=== PATIENT | male | born 1965 | race Asian ===

== ENCOUNTER 2021-03-09 00:46 | Outpatient (CLI) | payer OTHER | END 2021-03-09 00:47 | disposition critical access hospital (66) | LOC: EMS 00:46 | DX: R05.9 Cough, unspecified (principal) | CPT/HCPCS: A0425; A0427 ==

== ENCOUNTER 2021-03-09 01:08 | Emergency (ER) | payer OTHER ==
[2021-03-09] MEDS ORDERED: NITROGLYCERIN 2% PASTE TOP STA (01:28)
[2021-03-09] MEDS ORDERED: FUROSEMIDE 40 MG/4 ML VIAL IVP STA (01:28)
[2021-03-09 01:54] LABS: BASOPHILS # (AUTO) 0.1 10^3/uL (0.0-0.1); BASOPHILS % (AUTO) 0.7 %; EOSINOPHILS # (AUTO) 0.5 10^3/uL (0.0-0.7); EOSINOPHILS % (AUTO) 3.8 %; HCT - HEMATOCRIT 45.4 % (42.0-52.0); HGB - HEMOGLOBIN 14.8 g/dL (14.0-18.0); LYMPHOCYTES # (AUTO) 2.2 10^3/uL (1.5-3.5); MEAN CORPUSCULAR HEMOGLOBIN 28.7 pg (27.0-31.0); MEAN CORPUSCULAR HGB CONC 32.6 g/dL (32.0-36.0); MEAN CORPUSCULAR VOLUME 88.2 fL (80.0-94.0); MEAN PLATELET VOLUME 9.5 fL (7.4-11.4); MONOCYTES # (AUTO) 1.1 10^3/uL (0.0-1.0); MONOCYTES % (AUTO) 7.7 %; NEUTROPHILS # (AUTO) 10.4 10^3/uL (1.5-6.6); NEUTROPHILS % (AUTO) 72.2 %; PLT - PLATELET COUNT 292 10^3/uL (130-450); RED BLOOD COUNT 5.15 10^6/uL (4.70-6.10); RED CELL DISTRIBUTION WIDTH 14.6 % (12.0-15.0); WHITE BLOOD COUNT 14.4 x10^3/uL (4.8-10.8)
[2021-03-09 02:06] LABS: ALBUMIN 3.8 g/dL (3.2-5.5); ALBUMIN/GLOBULIN RATIO 1.1 (1.0-2.2); BILIRUBIN,TOTAL 0.4 mg/dL (0.2-1.0); CALCIUM 8.7 mg/dL (8.5-10.3); CREATININE 1.3 mg/dL (0.6-1.2); POTASSIUM 3.8 mmol/L (3.5-5.0); TOTAL PROTEIN 7.4 g/dL (6.7-8.2)
[2021-03-09 03:14] LABS: B. PARAPERTUSSIS- RESP PCR PAN NOT DETECTED; B. PERTUSSIS- RESP PCR PANEL NOT DETECTED; C. PNEUMONIAE- RESP PCR PANEL NOT DETECTED; CORONAVIRUS 229E-RESP PCR NOT DETECTED; CORONAVIRUS HKU1-RESP PCR NOT DETECTED; CORONAVIRUS NL63-RESP PCR NOT DETECTED; CORONAVIRUS OC43-RESP PCR NOT DETECTED; HUMAN METAPNEUMOVIRUS NOT DETECTED; INFLUENZA A- RESP PCR PANEL NOT DETECTED; INFLUENZA B - RESP PCR PANEL NOT DETECTED; M. PNEUMONIAE- RESP PCR PANEL NOT DETECTED; PARAINFLUENZA VIRUS 1 NOT DETECTED; PARAINFLUENZA VIRUS 2 NOT DETECTED; PARAINFLUENZA VIRUS 3 NOT DETECTED; PARAINFLUENZA VIRUS 4 NOT DETECTED; RHINOVIRUS/ENTEROVIRUS NOT DETECTED; RSV- RESP PCR PANEL NOT DETECTED; SARS-CoV-2 -RESP PCR PANEL NOT DETECTED
[2021-03-09] MEDS ORDERED: LORazepam 2 MG/ML VIAL IVP STA (03:22)
[2021-03-09] MEDS ORDERED: AZITHROMYCIN 250 MG TABLET PO STA (03:23)
--- NOTE | 2021-03-09 03:25 | ED Physician Documentation ---
PD HPI DYSPNEA - Stated complaint Stated Complaint: CP/ COUGH - Chief complaint Chief Complaint: Cardiac - History obtained from History obtained from: Patient, EMS - Additional information Additional information: Patient comes emergency department chief complaint of shortness of breath and cough. He states he first noticed it prominently after eating strawberry pie at work this evening, around 4 hours ago. He states he does not have any allergies to strawberries or anything else in the pie that he knows of. The patient did not choke on the food. He states that he began to have increasing secretions in his upper airways and felt short of breath. He states that he waited several hours before finally calling EMS and asking them to bring him in. EMS reports patient's sats have been in the upper 90s on room air. Patient denies fever, chills, or chest pain. He has been coughing up some yellow sputum. No history of COPD or asthma. He smokes cigars occasionally. No history of cardiac disease. No lower extremity edema. No other complaints at this time. Review of Systems Ten Systems: 10 systems reviewed and negative Constitutional: reports: Reviewed and negative Eyes: reports: Reviewed and negative Ears: reports: Reviewed and negative Nose: reports: Reviewed and negative Throat: reports: Reviewed and negative Cardiac: reports: Reviewed and negative Respiratory: reports: Dyspnea, Cough GI: reports: Reviewed and negative : reports: Reviewed and negative Skin: reports: Reviewed and negative Musculoskeletal: reports: Reviewed and negative Neurologic: reports: Reviewed and negative Psychiatric: reports: Reviewed and negative Endocrine: reports: Reviewed and negative Immunocompromised: reports: Reviewed and negative PD PAST MEDICAL HISTORY - Past Medical History Past Medical History: Yes Cardiovascular: Hypertension, High cholesterol Endocrine/Autoimmune: Type 2 diabetes Musculoskeletal: Gout - Past Surgical History Past Surgical History: No - Present Medications Home Medications: Ambulatory Orders Medication Instructions Recorded Confirmed Atorvastatin Calcium [Lipitor] 80 mg PO DAILY 03/09/21 03/09/21 Azithromycin [Zithromax] 0 mg PO DAILY #6 tablet 03/09/21 Losartan Potassium [Cozaar] 100 mg PO DAILY 03/09/21 03/09/21 metFORMIN [Glucophage] 500 mg PO BIDWM 03/09/21 03/09/21 - Allergies Allergies/Adverse Reactions: Allergies Allergy/AdvReac Type Severity Reaction Status Date / Time No Known Drug Allergies Allergy Verified 03/09/21 01:18 - Social History Does the pt smoke?: Yes Smoking Status: Current every day smoker Does the pt drink ETOH?: No Does the pt have substance abuse?: No - Immunizations Immunizations are current?: Yes PD ED PE NORMAL - Vitals Vital signs reviewed: Yes - General General: Alert and oriented X 3, Well developed/nourished, Other (Patient appears anxious but otherwise no apparent distress) - HEENT HEENT: Atraumatic, PERRL, EOMI, Moist mucous membranes - Neck Neck: Supple, no meningeal sign - Cardiac Cardiac: RRR, No murmur, Strong equal pulses - Respiratory Respiratory: No respiratory distress, Other (Patient has grossly audible upper airway crackles, but also has rales throughout his bilateral lung pinzon. Respirations are not labored, but patient has a frequent expiratory cough.) - Abdomen Abdomen: Soft, Non tender, Non distended - Derm Derm: Normal color, Warm and dry, No rash - Extremities Extremities: No deformity, No edema - Neuro Neuro: Alert and oriented X 3, grounds keeper 2-12 intact, Normal speech, Other (Grossly normal) - Psych Psych: Normal mood, Normal affect Results - Vitals Vitals: Vital Signs - 24 hr 03/09/21 03/09/21 03/09/21 01:10 02:53 04:00 Temperature 36.9 C Heart Rate 104 H 103 H 96 Respiratory 28 H 15 19 Rate Blood Pressure 173/139 H 173/106 H 146/105 H O2 Saturation 97 95 100 Oxygen O2 Source Room air - EKG (time done) 0111 Rate: Rate (enter#) (105) Rhythm: Sinus tachycardia [place]: Normal Intervals: Normal OK QRS: Normal Ischemia: Normal ST segments. No: T wave inversion Compare to prior EKG: Old EKG unavailable Computer interpretation: Agree with computer - Labs Labs: Laboratory Tests 03/09/21 03/09/21 03/09/21 01:48 01:48 01:48 WBC 14.4 H RBC 5.15 Hgb 14.8 Hct 45.4 MCV 88.2 MCH 28.7 MCHC 32.6 RDW 14.6 Plt Count 292 MPV 9.5 Neut # (Auto) 10.4 H Lymph # (Auto) 2.2 Gos[place] # (Auto) 1.1 H Eos # (Auto) 0.5 Baso # (Auto) 0.1 Absolute Nucleated RBC 0.00 Nucleated RBC % 0.0 Sodium 136 Potassium 3.8 Chloride 100 L Carbon Dioxide 25 Anion Gap 11.0 BUN 28 H Creatinine 1.3 H Estimated GFR (MDRD) 58 L Glucose 117 H Calcium 8.7 Total Bilirubin 0.4 AST 26 ALT 31 Alkaline Phosphatase 102 B-Natriuretic Peptide 23 Total Protein 7.4 Albumin 3.8 Globulin 3.6 Albumin/Globulin Ratio 1.1 Lipase 83 H Nasal Adenovirus (PCR) Nasal B. parapertussis DNA (PCR) Nasal Coronavir 229E PCR Nasal Coronavir HKU1 PCR Nasal Coronavir NL63 PCR Nasal Coronavir OC43 PCR Nasal Enterovir/Rhinovir PCR Nasal Influenza B PCR Nasal Influenza A PCR Nasal Parainfluen 1 PCR Nasal Parainfluen 2 PCR Nasal Parainfluen 3 PCR Nasal Parainfluen 4 PCR Nasal RSV (PCR) Nasal B.pertussis DNA PCR Nasal C.pneumoniae (PCR) Mandeep Human Metapneumo PCR Nasal M.pneumoniae (PCR) Nasal SARS-CoV-2 (PCR) 03/09/21 01:48 WBC RBC Hgb Hct MCV MCH MCHC RDW Plt Count MPV Neut # (Auto) Lymph # (Auto) Gos[place] # (Auto) Eos # (Auto) Baso # (Auto) Absolute Nucleated RBC Nucleated RBC % Sodium Potassium Chloride Carbon Dioxide Anion Gap BUN Creatinine Estimated GFR (MDRD) Glucose Calcium Total Bilirubin AST ALT Alkaline Phosphatase B-Natriuretic Peptide Total Protein Albumin Globulin Albumin/Globulin Ratio Lipase Nasal Adenovirus (PCR) NOT DETECTED Nasal B. parapertussis DNA (PCR) NOT DETECTED Nasal Coronavir 229E PCR NOT DETECTED Nasal Coronavir HKU1 PCR NOT DETECTED Nasal Coronavir NL63 PCR NOT DETECTED Nasal Coronavir OC43 PCR NOT DETECTED Nasal Enterovir/Rhinovir PCR NOT DETECTED Nasal Influenza B PCR NOT DETECTED Nasal Influenza A PCR NOT DETECTED Nasal Parainfluen 1 PCR NOT DETECTED Nasal Parainfluen 2 PCR NOT DETECTED Nasal Parainfluen 3 PCR NOT DETECTED Nasal Parainfluen 4 PCR NOT DETECTED Nasal RSV (PCR) NOT DETECTED Nasal B.pertussis DNA PCR NOT DETECTED Nasal C.pneumoniae (PCR) NOT DETECTED Mandeep Human Metapneumo PCR NOT DETECTED Nasal M.pneumoniae (PCR) NOT DETECTED Nasal SARS-CoV-2 (PCR) NOT DETECTED - Rads (name of study) chest XR Radiology: Prelim report reviewed, EMP read indepedently, See rad report (No acute disease) PD MEDICAL DECISION MAKING - ED course Complexity details: reviewed results, re-evaluated patient, considered differential, d/w patient ED course: The patient lungs sounded quite wet, and although he had good oxygen saturation, I was concerned that he may develop pulmonary edema. His blood pressure was fairly high, though patient did not complain of any other symptoms associated with this. Because of the degree of dizziness in the emergency department upon patient's arrival, I could not get a chest x-ray immediately, and based on the patient's respiratory exam, with what seemed to be audible rales, plus auscultated Rales throughout bilateral lung pinzon, I decided to treat the patient with Lasix and nitroglycerin paste preemptively. The patient's laboratory studies were unremarkable including BNP, which was normal. Surprisingly, the patient's chest x-ray was actually clear. I reexamined the patient, who continued to have a productive, expiratory cough, but good oxygen saturation. He was not wheezing and did not have a particularly prolonged expiratory phase. He did not have any chest pain or lower extremity symptoms to suggest DVT/PE. His blood pressure had improved on the nitroglycerin paste. He was given a dose of Zithromax and also of Ativan as the patient did seem somewhat anxious. This did help his symptoms. I discussed with him that I have not found any evidence of a cardiac issue, and that his x-ray is clear. He does not have any other symptoms of any sort of allergic reaction, and at this point time, I have advised him to follow-up with his primary doctor if his symptoms do not improve over the next few days. If things worsen, he should return to the emergency department. Departure - Departure Disposition: 01 Home, Self Care Clinical Impression: Dyspnea Qualifiers: Dyspnea type: shortness of breath Qualified Code(s): R06.02 - Shortness of breath Upper respiratory tract infection Qualifiers: URI type: unspecified URI Qualified Code(s): J06.9 - Acute upper respiratory infection, unspecified Condition: Stable Instructions: ED Upper Resp Infec Abx Tx Prescriptions: Azithromycin [Zithromax] 0 mg PO DAILY #6 tablet Comments: Your labs and EKG look good. There is no evidence of a heart problem and actually, your x-ray does not show any fluid in your lungs. Your airways seem to be congested, though it is not clear exactly what is caused this. You may have an infection in the airways, which would be something like bronchitis. However, it is also possible that you had some sort of reaction to something in the pie that you ate. It is difficult to say, since your symptoms came on so suddenly, as far as you could tell. Please take the antibiotics, as prescribed. If you continue to have issues with congestion and your breathing, even after taking the antibiotics, then you will need to follow-up with your primary doctor to discuss any further concerns. Tonight, your oxygen levels are good, and there is nothing to indicate respiratory danger at this point. Discharge Date/Time: 03/09/21 04:01
[2021-03-09 04:01] VITALS: BP 146/105
--- NOTE | 2021-03-09 08:24 | XRAY Report ---
PROCEDURE: Chest 1 View X-Ray INDICATIONS: chest pain TECHNIQUE: One view of the chest was acquired. COMPARISON: None FINDINGS: Surgical changes and devices: None. Lungs and pleura: No pleural effusions or pneumothorax. Lungs are clear. Mediastinum: Mediastinal contours appear normal. Heart size is normal. Bones and chest wall: No suspicious bony lesions. Overlying soft tissues appear unremarkable. IMPRESSION: No evidence acute pulmonary process. Reviewed by: Chacho Man MD on 03/09/2021 8:23 AM PDT Approved by: Chacho Man MD on 03/09/2021 8:23 AM PDT Station ID: [id number]
== END 2021-03-09 04:01 | disposition home or self-care (01) ==
LOC: ED 01:08
DX: J06.9 Acute upper respiratory infection, unspecified (principal); R06.02 Shortness of breath; Z20.822 Contact with and (suspected) exposure to COVID-19; R42 Dizziness and giddiness; R00.0 Tachycardia, unspecified; I10 Essential (primary) hypertension; F41.9 Anxiety disorder, unspecified; E11.9 Type 2 diabetes mellitus without complications; Z79.84 Long term (current) use of oral hypoglycemic drugs; F17.290 Nicotine dependence, other tobacco product, uncomplicated
CPT/HCPCS: 0202U; 36415; 71045; 80053; 83690; 83880; 85025; 93005; 96374; 96375; 99283; 99284; A9270; J2060

== ENCOUNTER 2023-10-21 13:29 | Outpatient (CLI) | payer OTHER ==
--- NOTE | 2023-10-21 16:36 | Ultrasound Report ---
PROCEDURE: Renal (Retroperitoneal) INDICATIONS: KIDNEY DYSFUNCTION TECHNIQUE: Real-time scanning was performed of the retroperitoneal organs, with image documentation. COMPARISON: None. FINDINGS: Kidneys: Kidneys are normal in size. Right kidney measures 11.7 cm long; left kidney measures 12.0 cm long. Right renal cortical thickness is 0.9 cm; left renal cortical thickness is 0.8 cm. No aleshia d masses, hydronephrosis, or nephrolithiasis. Increased renal echogenicity. Benign, anechoic cysts ar e present, largest measuring 1.8 x 1.3 x 1.4 cm on the right and 0.5 x 1.2 x 1.2 cm on the left. Bladder: Pre-void bladder volume is 137 mL. Post-void residual is 10 mL. Pre-void images demonstra te no intraluminal masses or stones. On pre-void images, ureteral jets are noted with color Doppler interrogation. (Of note, ureteral jets may not be detectable in up to 25% of cases due to insufficie nt differences in specific gravity between ureteral and bladder urine). Miscellaneous: No free abdominal fluid. IMPRESSION: Increased cortical echogenicity, likely chronic parenchymal disease. No hydronephrosis. Reviewed by: Vernon Snow MD on 10/21/2023 4:34 PM PDT Approved by: Vernon Snow MD on 10/21/2023 4:34 PM PDT Station ID: [id number]
== END 2023-10-21 13:30 | disposition home or self-care (01) ==
LOC: DI 13:29
PROVIDERS: ATTEND Internal Medicine Nephrology
DX: N32.0 Bladder-neck obstruction (principal); N28.9 Disorder of kidney and ureter, unspecified

== ENCOUNTER 2023-11-29 10:13 | Outpatient (CLI) | payer OTHER ==
[2023-11-29 17:54] LABS: HCT - HEMATOCRIT 39.8 % (42.0-52.0); HGB - HEMOGLOBIN 12.1 g/dL (14.0-18.0); MEAN CORPUSCULAR HEMOGLOBIN 26.6 pg (27.0-31.0); MEAN CORPUSCULAR HGB CONC 30.4 g/dL (32.0-36.0); MEAN CORPUSCULAR VOLUME 87.5 fL (80.0-94.0); MEAN PLATELET VOLUME 9.6 fL (7.4-11.4); RED BLOOD COUNT 4.55 10^6/uL (4.70-6.10); RED CELL DISTRIBUTION WIDTH 15.4 % (12.0-15.0); WHITE BLOOD COUNT 10.7 x10^3/uL (4.8-10.8)
[2023-11-29 19:20] LABS: CALCIUM 9.1 mg/dL (8.5-10.3); CREATININE 2.3 mg/dL (0.6-1.3); PHOSPHORUS 2.5 mg/dL (2.5-5.0); POTASSIUM 4.1 mmol/L (3.5-4.5)
[2023-11-29 19:21] LABS: CREATININE,URINE 97.8 mg/dL
== END 2023-11-29 10:14 | disposition home or self-care (01) ==
LOC: LAB.N 10:13
PROVIDERS: ATTEND Internal Medicine Nephrology
DX: N05.9 Unspecified nephritic syndrome with unspecified morphologic changes (principal); I50.32 Chronic diastolic (congestive) heart failure; N25.81 Secondary hyperparathyroidism of renal origin; R80.9 Proteinuria, unspecified; D70.9 Neutropenia, unspecified; D63.1 Anemia in chronic kidney disease
CPT/HCPCS: 36415; 80048; 82570; 83880; 83970; 84100; 84156; 85025; 85027